=== PATIENT | female | born 1955 | race Caucasian/White ===

== ENCOUNTER → 2024-07-15 | Outpatient (CLI) | payer MEDICARE, BC, SELFPAY ==
--- NOTE | 2024-07-15 10:07 | XR_ITS ---
Examination: Lumbar spine, 5 views Technique: Lumbar spine AP, lateral, coned lateral lower lumbar spine, bilateral obliques 5 views Exam date and time: July 15, 2024 1023 hours INDICATIONS: Mid back pain beginning one year ago. FINDINGS: Significant osteopenia Spina bifida S1 Diffuse advanced facet arthropathy No lumbar fracture Moderate lumbar spondylosis Diffuse lumbar degenerative disc disease, advanced L5-S1 IMPRESSION: Diffuse lumbar degenerative disc disease, advanced L5-S1 with significant spinal stenosis
[2024-07-15 11:36] LABS: Glucose Estimated Average 103 mg/dL (80-131); Hemoglobin A1C 5.2 % Hgb (4.8-6.0)
[2024-07-15 11:37] LABS: Basophils # (Auto) 0.1 Thou/mm3 (0.0-0.2); Basophils % (Auto) 1 % (0-2.5); Eosinophils # (Auto) 0.2 Thou/mm3 (0.0-0.5); Eosinophils % (Auto) 2 % (0-10); Hematocrit 49.8 % (36.0-46.0); Hemoglobin 16.8 g/dL (12.0-16.0); Immature Granulocytes % (Auto) 0 % (0-0); Immature Granulocytes Auto 0.02 Thou/mm3 (0.00-0.00); Lymphocytes # (Auto) 2.1 Thou/mm3 (1.0-4.8); Lymphocytes % (Auto) 29 % (10-50); Mean Corpuscular HGB Conc 33.7 g/dl (31.0-37.0); Mean Corpuscular Hemoglobin 31.2 pg (25.0-35.0); Mean Corpuscular Volume 92 fL (80-100); Monocytes # (Auto) 0.6 Thou/mm3 (0.0-0.8); Monocytes % (Auto) 9 % (0-12); Neutrophils # (Auto) 4.2 Thou/mm3 (1.8-7.7); Neutrophils % (Auto) 59 % (37-80); Nucleated Red Blood Cell % 0 /100 WBC (0); Platelet Count 255 Thou/mm3 (140-440); RDW Standard Deviation 43.3 fL (36.4-46.3); Red Blood Count 5.39 Miln/mm3 (4.00-5.20); White Blood Count 7.1 Thou/mm3 (3.6-11.0)
[2024-07-15 11:45] LABS: Alanine Aminotransferase 41 U/L (10-49); Albumin, Serum 4.8 gm/dL (3.4-4.8); Albumin/Globulin Ratio 2.1 (1.2-2.2); Alkaline Phosphatase 89 U/L (46-116); Anion Gap 13 (7-16); Aspartate Amino Transferase 29 U/L (0-34); BUN/Creatinine Ratio 29 Ratio (12-20); Bilirubin,Total 0.8 mg/dL (0.3-1.2); Blood Urea Nitrogen 23 mg/dL (9-23); Calcium 10.1 mg/dL (8.3-10.6); Calcium (Corrected) 10.1 mg/dL (8.5-10.1); Carbon Dioxide 23.9 mMol/L (20.0-31.0); Cardiac Risk Estimate 3.3 RATIO (3.7-5.6); Chloride 102 mMol/L (98-107); Cholesterol 162 mg/dL (132-200); Creatinine (Component) 0.8 mg/dL (0.6-1.3); Globulin 2.3 gm/dL (2.3-3.5); Glucose 95 mg/dL (74-106); HDL Cholesterol 49 mg/dL (40-60); LDL Cholesterol,Calculated 93 mg/dL (0-130); Osmolality,Calculated 281 (275-295); Potassium 4.2 mMol/L (3.4-5.1); Sodium 139 mMol/L (136-145); Total Protein 7.1 gm/dL (5.7-8.2); Triglycerides 100 mg/dL (30-150); eGFR > 60 See Note
== END | disposition home or self-care (01) ==
LOC: COPL 09:50
PROVIDERS: PCP Family Medicine; Referring Provider Family Medicine; Visit Provider Radiology Diagnostic Radiology
DX: M51.379 Other intervertebral disc degeneration, lumbosacral region without mention of lumbar back pain or lower extremity pain (principal); M48.07 Spinal stenosis, lumbosacral region; I10 Essential (primary) hypertension; G43.119 Migraine with aura, intractable, without status migrainosus; R79.9 Abnormal finding of blood chemistry, unspecified
CPT/HCPCS: 36415; 72110; 80053; 80061; 83036; 85025

== ENCOUNTER → 2024-08-19 | Outpatient (CLI) | payer MEDICARE, BC, SELFPAY ==
--- NOTE | 2024-08-19 10:02 | XR_ITS ---
Examination: Thoracic spine 3 views TECHNIQUE: AP lateral coned lateral upper dorsal spine 3 views Exam date and time: August 19, 2024 1116 hours INDICATIONS: Upper back pain beginning one year ago. FINDINGS: No acute thoracic fracture Mild to moderate diffuse thoracic degenerative disc disease Prominent thoracic spondylosis IMPRESSION: Mild to moderate diffuse thoracic degenerative disc disease Prominent thoracic spondylosis
--- NOTE | 2024-08-19 10:02 | XR_ITS ---
EXAMINATION: Cervical spine, 5 views Technique: Cervical spine AP, AP odontoid, lateral, bilateral obliques, 5 views Exam date and time: August 19, 2024 1101 hours INDICATIONS: Neck pain beginning one year ago. FINDINGS: Straightening normal cervical lordosis. No cervical fracture. Intact odontoid Moderate to advanced degenerative disc disease C5-C6 with moderate bilateral neural foraminal stenosis IMPRESSION: Moderate to advanced degenerative disc disease C5-C6 with moderate bilateral neural foraminal stenosis
== END | disposition home or self-care (01) ==
PROVIDERS: PCP Family Medicine; Referring Provider Family Medicine; Visit Provider Family Medicine
DX: M51.34 Other intervertebral disc degeneration, thoracic region (principal); M47.814 Spondylosis without myelopathy or radiculopathy, thoracic region; M50.322 Other cervical disc degeneration at C5-C6 level; M48.02 Spinal stenosis, cervical region
CPT/HCPCS: 72050; 72072

== ENCOUNTER → 2024-09-03 | Outpatient (CLI) | payer MEDICARE, BC, SELFPAY ==
--- NOTE | 2024-09-03 14:52 | XR_ITS ---
Examination: Abdomen 2 views Technique one AP upright AP supine abdomen 2 views Exam date and time: February 03, 2025 1519 hours INDICATIONS: Abdominal pain beginning 4 days ago. FINDINGS: Minimal air distended small bowel loops in the left abdomen Surgical clips upper right abdomen No free air No obstruction IMPRESSION: Mild small bowel ileus
[2024-09-03 18:10] LABS: Basophils # (Auto) 0.1 Thou/mm3 (0.0-0.2); Basophils % (Auto) 0 % (0-2.5); Eosinophils # (Auto) 0.3 Thou/mm3 (0.0-0.5); Eosinophils % (Auto) 2 % (0-10); Hematocrit 45.3 % (36.0-46.0); Hemoglobin 15.2 g/dL (12.0-16.0); Immature Granulocytes % (Auto) 1 % (0-0); Immature Granulocytes Auto 0.07 Thou/mm3 (0.00-0.00); Lymphocytes # (Auto) 2.7 Thou/mm3 (1.0-4.8); Lymphocytes % (Auto) 20 % (10-50); Mean Corpuscular HGB Conc 33.6 g/dl (31.0-37.0); Mean Corpuscular Hemoglobin 31.1 pg (25.0-35.0); Mean Corpuscular Volume 93 fL (80-100); Monocytes # (Auto) 1.3 Thou/mm3 (0.0-0.8); Monocytes % (Auto) 10 % (0-12); Neutrophils # (Auto) 9.1 Thou/mm3 (1.8-7.7); Neutrophils % (Auto) 67 % (37-80); Nucleated Red Blood Cell % 0 /100 WBC (0); Platelet Count 248 Thou/mm3 (140-440); RDW Standard Deviation 46.8 fL (36.4-46.3); Red Blood Count 4.88 Miln/mm3 (4.00-5.20); White Blood Count 13.5 Thou/mm3 (3.6-11.0)
== END | disposition home or self-care (01) ==
LOC: COPL 14:40
PROVIDERS: PCP Physician Assistant; Referring Provider Physician Assistant; Visit Provider Radiology Diagnostic Radiology
DX: K56.7 Ileus, unspecified (principal); R10.0 Acute abdomen
CPT/HCPCS: 36415; 74019; 85025

== ENCOUNTER → 2024-09-10 | Outpatient (CLI) | payer MEDICARE, BC, SELFPAY ==
--- NOTE | 2024-09-10 08:00 | XR_ITS ---
Examination: CT abdomen and pelvis without contrast. Coronal 3-D reconstructions. Sagittal 2-D reconstructions. Date and time of exam:September 10, 2024 0752 hours INDICATIONS: Generalized abdominal pain beginning one week ago CTDI: vol (mGy): 11.1 DLP: (mGycm): 590 Technique: Axial images of the abdomen have been obtained, 3 mm slice thickness Intravenous contrast material has not been administered. Low dose protocols were performed. One or more of the following dose reduction techniques were used; automated exposure control, adjustment of the mA and/or KV according to patient size, use of iterative reconstruction technique. Findings: No focal liver or splenic lesion Absent gallbladder No pancreatic mass No renal or ureteral calculi, no hydronephrosis Abdominal aortic calcification no aneurysmal dilatation Normal appendix Colonic diverticulosis Mild edema about the diverticula in the sigmoid colon, no pelvic abscess Bladder intact IMPRESSION: Mild acute sigmoid diverticulitis
== END | disposition home or self-care (01) ==
LOC: CCTX 07:42
PROVIDERS: PCP Family Medicine; Referring Provider Physician Assistant; Visit Provider Physician Assistant
DX: K57.32 Diverticulitis of large intestine without perforation or abscess without bleeding (principal)
CPT/HCPCS: 74176

== ENCOUNTER → 2024-10-09 | Outpatient (CLI) | payer MEDICARE, BC, SELFPAY ==
[2024-10-09 10:58] LABS: Cardiac Risk Estimate 5.2 RATIO (3.7-5.6); Cholesterol 280 mg/dL (132-200); HDL Cholesterol 54 mg/dL (40-60); LDL Cholesterol,Calculated 201 mg/dL (0-130); Triglycerides 126 mg/dL (30-150)
== END | disposition home or self-care (01) ==
LOC: COPL 10:00
PROVIDERS: PCP Family Medicine; Referring Provider Family Medicine; Visit Provider Family Medicine
DX: E78.2 Mixed hyperlipidemia (principal)
CPT/HCPCS: 36415; 80061

== ENCOUNTER → 2024-12-25 | Outpatient (CLI) | payer MEDICARE, BC, SELFPAY ==
[2024-12-25 14:22] LABS: Collection Type, Urine Clean Catch
[2024-12-25 15:41] LABS: Bilirubin,Urine Negative (Negative); Blood,Urine Negative (Negative); Clarity,Urine Clear (Clear/Hazy); Color,Urine Lt-Yellow (Lt Yel-Yel); Glucose, Urine Negative (Negative); Ketones,Urine Negative (Negative); Leukocyte Esterase,Urine Positive (Negative); Nitrite,Urine Negative (Negative); PH,Urine 5.5 (5.0-7.0); Protein,Urine Negative (Neg - Trace); RBC,Urine < 1 /hpf (0-3); Specific Gravity,Urine 1.010 (1.001-1.035); Squamous Epithelial Cell,Urine 1 /hpf (0-5); Urobilinogen,Urine Negative mg/dL (0.0-1.0); WBC,Urine 3 /hpf (0-5)
== END | disposition home or self-care (01) ==
LOC: SLDO 14:15
PROVIDERS: PCP Nurse Practitioner Family; Referring Provider Nurse Practitioner Family; Visit Provider Nurse Practitioner Family
DX: N39.0 Urinary tract infection, site not specified (principal)
CPT/HCPCS: 81001; 87086

== ENCOUNTER → 2024-12-31 | Outpatient (BNVA) | payer MEDICARE, BC, SELFPAY | END | disposition home or self-care (01) | PROVIDERS: PCP Family Medicine; Referring Provider Family Medicine; Visit Provider Nurse Practitioner Primary Care | DX: H00.034 Abscess of left upper eyelid (principal) | CPT/HCPCS: 99213 ==

== ENCOUNTER → 2025-01-06 | Outpatient (CLI) | payer MEDICARE, BC, SELFPAY ==
[2025-01-06 11:11] LABS: Cardiac Risk Estimate 5.2 RATIO (3.7-5.6); Cholesterol 262 mg/dL (132-200); HDL Cholesterol 50 mg/dL (40-60); LDL Cholesterol,Calculated 183 mg/dL (0-130); Triglycerides 146 mg/dL (30-150)
== END | disposition home or self-care (01) ==
LOC: COPL 10:02
PROVIDERS: PCP Family Medicine; Referring Provider Family Medicine; Visit Provider Family Medicine
DX: E78.2 Mixed hyperlipidemia (principal)
CPT/HCPCS: 36415; 80061

== ENCOUNTER → 2025-01-08 | Outpatient (BNVA) | payer MEDICARE, BC, SELFPAY | END | disposition home or self-care (01) | PROVIDERS: PCP Nurse Practitioner Primary Care; Referring Provider Nurse Practitioner Primary Care; Visit Provider Nurse Practitioner Primary Care | DX: H00.034 Abscess of left upper eyelid (principal); R59.0 Localized enlarged lymph nodes | CPT/HCPCS: 99212; 99213 ==